=== PATIENT | male | born 2005 | race Caucasian/White ===

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

== ENCOUNTER 2024-01-19 15:55 | Outpatient (AMB) | payer OTHER, SELFPAY ==
--- NOTE | 2024-01-19 15:56 | MHC.OFFWIV ---
Intake Vital Signs 01/19/24 15:57 Height 5 ft 9 in Weight 86.636 kg BMI 28.2 BP 100/60 Blood Pressure Location Lt brachial Position Sitting Pulse 95 Pulse Source Pulse Oximeter Temp 102.4 F H Temp Source Oral Pulse Oximetry (%) 96 Oxygen Delivery Method Room Air Intake Visit Reasons: [employer] Fever, cough, tired Intake Note: pt here c/o fever, cough, fatigue since yesterday. Worsened today. Patient Tobacco Use Status: Never used Tobacco Allergies gabapentin Allergy (Unknown, Verified 01/19/24 16:18) hives Medication List - Last Reconciled 01/19/24 by Corby Ventura MD No Known Home Meds Do you need a note to return to daycare/school/sports/work: Yes HPI [employer] Fever, cough, tired HPI Details 18 yr old male presents to the office for a sick visit. Patient is reporting sx of sore throat, difficulty swallowing and low grade fever. No nausea. PFSH Social History Patient Tobacco Use Status: Never used Tobacco Physical Exam Vital Signs: Last Vital Signs Temp 102.4 F H 01/19/24 15:57 Pulse 95 01/19/24 15:57 BP 100/60 01/19/24 15:57 Pulse Ox 96 01/19/24 15:57 Oxygen Delivery Method Room Air 01/19/24 15:57 BMI result Body Mass Index 28.2 Const General: cooperative and healthy appearing Nutritional Appearance: well nourished Orientation/consciousness: patient oriented x3 Limitations: no limitations HEENT Head: Yes normal to inspection Eyes General: appearance normal, both eyes and all related structures Neck Neck: Yes normal visual inspection Chest Chest palpation & inspection: normal palpation of entire chest wall Resp Effort & Inspection: normal respiratory effort Neuro General: patient oriented x3 Assessment & Plan Assessment & Plan (1) Acute bronchitis: Code(s): J20.9 - Acute bronchitis, unspecified Plan: Azithromycin called in. Salt water gargling. Increase fluid intake. If sx not better to follow up here. Medications: New azithromycin take 500 mg today (day 1), then 250 mg for 4 days (days 2-5) PO 6 tabs 0RF Coding Level of Care Code Est Pt Level 3 (55550) Diagnoses Acute bronchitis J20.9
[2024-01-19 15:57] VITALS: BP 100/60; PULSE 95; TEMP 39.1; O2SAT 96; BMI 28.2
== END 2024-01-19 16:34 | disposition home or self-care (01) ==
PROVIDERS: Visit Provider Internal Medicine
DX: J20.9 Acute bronchitis, unspecified (principal)
CPT/HCPCS: 99213